=== PATIENT | male | born 2000 | race African-American/Black ===

== ENCOUNTER 2022-11-09 15:24 | Emergency (ER) | payer SELFPAY ==
[~2022-11-09] VITALS: Ht 188 cm; Wt 74.0 kg
[2022-11-09] MEDS ORDERED: ACETAMINOPHEN 325MG TABLET PO ONE (16:15)
[2022-11-09] MEDS ORDERED: KETOROLAC 15MG/ML VIAL IM ONE (20:00)
[2022-11-09] MEDS ORDERED: ACETAMINOPHEN 325MG TABLET PO NR (20:15)
[2022-11-09 20:26] VITALS: BP 110/77
[2022-11-09] MEDS ORDERED: NAPR500T7 MT (20:27)
== END 2022-11-09 21:13 | disposition home or self-care (01) ==
LOC: ER 15:24
DX: S93.402A Sprain of unspecified ligament of left ankle, initial encounter (principal); Y93.39 Activity, other involving climbing, rappelling and jumping off; Y93.89 Activity, other specified; Y92.89 Other specified places as the place of occurrence of the external cause; Y99.8 Other external cause status
CPT/HCPCS: 73610; 73620; 96372; 99284; J1885; Z7610